=== PATIENT | male | born 1995 | race Caucasian/White ===

== ENCOUNTER 2017-06-28 01:32 | Emergency (ER) | payer OTHER | END 2017-06-28 03:22 | disposition home or self-care (01) | LOC: ER1 01:32 | DX: S60.211A Contusion of right wrist, initial encounter (principal); Z88.0 Allergy status to penicillin; Z88.5 Allergy status to narcotic agent; W22.8XXA Striking against or struck by other objects, initial encounter; Y92.89 Other specified places as the place of occurrence of the external cause; Y99.0 Civilian activity done for income or pay | CPT/HCPCS: 29125; 73090; 73110; 96372; 99283; J1885 ==

== ENCOUNTER 2021-02-10 17:59 | Emergency (ER) | payer SELFPAY ==
[2021-02-10] MEDS ORDERED: IBUPROFEN600 MG PO (22:46)
[2021-02-10] MEDS ORDERED: BACTROBAN OINT22 GM EXT (22:46)
[2021-02-10] MEDS ORDERED: CLEOCIN HCL300 MG PO (22:46)
== END 2021-02-10 22:35 | disposition home or self-care (01) ==
LOC: ER1 17:59
DX: S91.332A Puncture wound without foreign body, left foot, initial encounter (principal); Z88.5 Allergy status to narcotic agent; Z88.0 Allergy status to penicillin; Z23 Encounter for immunization; W22.8XXA Striking against or struck by other objects, initial encounter; Y92.009 Unspecified place in unspecified non-institutional (private) residence as the place of occurrence of the external cause
CPT/HCPCS: 73630; 90471; 90715; 99283